=== PATIENT | female | born 1975 | race Caucasian/White ===

== ENCOUNTER → 2022-11-08 | Outpatient (CLI) | payer BC, MEDICARE ==
--- NOTE | 2022-11-09 17:10 | MM ---
Reason for Exam: Screening (asymptomatic). Last mammogram was performed 6 year(s) and 3 month(s) ago. Patient History: Menarche at age 14. Patient has no children. Postmenopausal. Last menstrual period: 05/08/2022 Risk Values: Evelina 5 year model risk: 0.9%. NCI Lifetime model risk: 9.5%. Prior Study Comparison: 07/21/2015 Bilateral MG screening mammo w CAD - 2, [facility]. 08/22/2016 Bilateral MG screening mammo w CAD - 2, [facility]. Tissue Density: There are scattered fibroglandular densities. Findings: Analyzed By CAD. Pattern appears symmetrical. Scattered benign calcifications are present bilaterally No suspicious groups of microcalcifications, spiculated or lobular masses, architectural distortion or other secondary signs of malignancy are mammographically apparent. Overall Assessment: Benign, BI-RAD 2 Management: Screening Mammogram of both breasts in 1 year. A negative mammogram report should not preclude additional follow up of suspicious palpable abnormalities. Patient should continue monthly self breast exam. A clinical breast exam by your physician is recommended on an annual basis and results should be correlated with mammographic findings. Electronically signed and approved by: Lm Martínez D.O. Radiologis
== END | disposition home or self-care (01) ==
LOC: RADMAMWWP 09:23
PROVIDERS: ATTEND Obstetrics & Gynecology
DX: Z12.31 Encounter for screening mammogram for malignant neoplasm of breast (principal); Z78.0 Asymptomatic menopausal state
CPT/HCPCS: 77063; 77067